=== PATIENT | female | born 1980 | race Caucasian/White ===

== ENCOUNTER 2016-10-03 20:56 | Emergency (ER) | payer MEDICARE, OTHER ==
[2016-10-03] MEDS ORDERED: NALBUPHINE HCL 20 MG/ML AMPUL IM ONE (22:46)
[2016-10-03] MEDS ORDERED: PROMETHAZINE HCL 50 MG/ML AMPUL IM ONE (22:47)
--- NOTE | 2016-10-03 22:51 | ERNOTE ---
Headache ER HPI - General Presenting Symptoms: headache Time Seen by Provider: 10/03/16 22:45 Source: patient Exam Limitations: no limitations - Immun/Allergies/Home Medications Immunizations: IMMUNIZATION HX Immunizations Up to Date No History of Influenza Vaccine No Hx Pneumococcal Vaccination No Allergies/Adverse Reactions: Allergies erythromycin base [Erythromycin Base] Allergy (Mild, Verified 03/02/16 14:55) increased eye drainage and swelling oxycodone HCl [From Percocet] Allergy (Mild, Verified 03/02/16 14:55) rash ofloxacin [From Ocuflox] Allergy (Verified 03/02/16 14:55) increased eye drainage and swelling cloth tape Allergy (Intermediate, Uncoded 03/02/16 14:55) surgical mike Allergy (Intermediate, Uncoded 03/02/16 14:55) Other Home Medications: HOME MEDICATIONS Albuterol Sulfate [Proair Hfa] 2 puff IH Q4H 06/03/13 [Last Taken 05/03/14] Levothyroxine Sodium [Synthroid] 112 mcg PO DAILY 06/03/13 [Last Taken 05/03/14] Montelukast Sodium [Singulair] 10 mg PO DAILY 07/10/15 [Last Taken Unknown] Albuterol Sulfate/Ipratropium [Duoneb 2.5-0.5MG/3ML Soln] 3 ml IH Q6H PRN #40 nebu 08/29/15 [Last Taken Unknown] Lamotrigine [Lamictal] 200 mg PO DAILY 02/03/16 [Last Taken Unknown] Fluticasone/Vilanterol [Breo Ellipta 100-25 Mcg INH] 1 inh INH DAILY 10/03/16 [ Last Taken Unknown] Quetiapine Fumarate [Seroquel] 200 mg PO DAILY 10/03/16 [Last Taken Unknown] Tiotropium [place] [Spiriva Respimat] 4 gm IH DAILY 10/03/16 [Last Taken Unknown ] - History of Present Illness Narrative: Here for chronic headaches. This one started two days ago. Pt no longer sees neurologist or PCP due to insurance issues. has not taken any meds except Excedrin as she states " they dont work" Review of Systems - Review of Systems Constitutional: Present: no symptoms reported EYE: Present: other - photophobia ENT: Present: no symptoms reported Respiratory: Present: no symptoms reported Cardiology: Present: no symptoms reported Gastrointestinal/Abdominal: Present: no symptoms reported Genitourinary: Present: no symptoms reported Musculoskeletal: Present: no symptoms reported Skin: Present: no symptoms reported Neurological: Present: See HPI Psych: Present: no symptoms reported - Patient's Past Medical History Patient History - Medical: Anxiety, Bipolar, Depression, Hypothyroidism, Obesity , Other Patient History - Cardiac/Respiratory: Asthma Patient History - Cancer: No Hx of Cancer Patient History - Surgical Procedures: Appendectomy, , Tubal Ligation, T & A, Other Patient History - Other: None LMP (Calendar): 10/01/15 - Family History Father Family History - Cardiac/Respiratory: Hypertension Mother Family History - Medical: Diabetes Type 2 Family History - Cardiac/Respiratory: Hypertension, Hyperlipidemia - Social History Living Situations: home Abuse History: No History of abuse Psych History: Hx of Anxiety, Hx of Depression, Hx of Bipolar Disorder, Hx of Schizophrenia, Hx of Eating Disorder, Hx of Suicide Attempt, Hx of Psychiatric Tx Does anyone smoke in the home?: No Smoking Status: Former smoker Have you smoked in the past 12 months: No Do you dip or chew tobacco: No Alcohol Use: none Drug Use: none - Immunizations Immunizations Up to Date: No Hx Pneumococcal Vaccination: No History of Influenza Vaccine: No Physical Exam - Physical Exam General Appearance: Present: wd/wn, alert, no apparent distress Ears, Nose, Throat: Present: normal ENT inspection Neck: Present: normal inspection, nontender, supple Respiratory: Present: no respiratory distress, normal breath sounds, chest nontender, lungs clear Cardiovascular/Chest: Present: regular rate, rhythm, no murmur, normal peripheral pulses Gastrointestinal/Abdominal: Present: normal bowel sounds - obese, nontender, nondistended, soft, no organomegaly Neurological Exam: Present: alert, oriented ED Progress - Vital Signs Vital Signs: Vital Signs 10/03/16 21:20 Temperature 37.3 C Pulse Rate 84 Respiratory 22 H Rate Blood Pressure 161/73 O2 Sat by Pulse 99 Oximetry - Progress/Reassessment Chief Complaint: Headache Departure Clinical Impression: Headache Qualifiers: Headache type: unspecified Headache chronicity pattern: unspecified pattern - Departure Disposition: Home self-care Condition: Fair Instructions: Tension Headache, [id number] Referrals: Olamide Vasquez FNP [Primary Care Provider] -
[2016-10-03] MEDS ORDERED: PROMETHAZINE HCL 25 MG/ML AMPUL ONE (22:55)
[2016-10-03] MEDS ORDERED: NALBUPHINE HCL 20 MG/ML AMPUL ONE (22:55)
--- OUTSIDE RECORDS SUMMARY | 2016-10-03 22:55 | XMS REPORT | Continuity of Care Document ---
:1980 Author Organization [facility] ([facility]) Address [address] [place] [address] Phone [phone] Care Team Providers Name Role Phone Olamide Vasquez Primary Care Provider [phone] Source Comments This disclosure is being made pursuant to the Care Everywhere program, applicable federal and state laws, and may not contain all informaitonavailable regarding this patient.[facility] ([facility]) Active Allergies and Adverse Reactions Allergen Noted Date Severity Reactions Comments Adhesive Urticaria (Hives) Benzalkonium Chloride OTHER worsened infection Erythromycin OTHER Ophthalmic Oint.-infection worsened. Ofloxacin OTHER worsened infection. Also called Ocuflex. Other Agent 07/16/2016 Blisters,OTHER Infection at the staple sites. SURGICAL KEISHA Oxycodone Pruritus Current Medications Prescription Sig. Disp. Refills Start Date End Date Status levothyroxine 112 mcg 112 mcg daily. 09/06/2013 Active tablet VENTOLIN HFA 90 as needed. 2 07/13/2016 Active mcg/Actuation inhaler albuterol 2.5 mg/3 mL daily. 2 05/26/2016 Active inhalation solution lamoTRIgine 200 mg Take 1 tablet by 3 05/26/2016 Active tablet mouth daily. montelukast 10 mg tablet Take 1 tablet by 11 05/26/2016 Active mouth daily. oxyCODONE-acetaminophen as needed. 0 06/02/2016 Active 5-325 mg per tablet QUEtiapine 200 mg tablet Take 1 tablet by 3 05/26/2016 Active mouth at bedtime. SPIRIVA RESPIMAT 1.25 2 times daily. 11 05/26/2016 Active mcg/actuation inhaler budesonide-formoterol Use 2 Puffs by Active (SYMBICORT) 160-4.5 inhalation daily. mcg/Actuation inhaler Active Problems Problem Noted Date Morbid obesity due to excess calories 07/16/2016 Bipolar 1 disorder 07/16/2016 Hx of migraines 07/16/2016 PTSD (post-traumatic stress disorder) 07/16/2016 Hypothyroidism 07/16/2016 Cluster B personality disorder in adult 07/16/2016 Adjustment disorder with mixed anxiety and depressed mood 07/16/2016 Asthma 07/16/2016 Irritable bowel syndrome 07/16/2016 H/O colectomy 07/16/2016 Special screening for malignant neoplasms, vagina 10/19/2006 Most Recent Encounters Date Type Specialty Providers Description 07/16/2016 Hospital Encounter Food and Nutrition Patsy Hough, Dx: Morbid obesity MD due to excess Fara Fan RD LD calories (Primary Dx) 07/16/2016 Office Visit Srg Patsy Pickard, Dx: Special MD screening for malignant neoplasms, vagina (Primary Dx) Social History Tobacco Use Types Packs/Day Years Used Date Former Smoker Cigarettes 0.5 5 Quit: 12/03/2008 Smokeless Tobacco: Never Used Alcohol Use Drinks/Week oz/Week Comments Yes 1 Glasses of wine 1 Standard drinks or equivalent Last Filed Vital Signs Vital Sign Reading Time Taken Blood Pressure 140/64 07/16/2016 8:08 AM SENIOR ENGINEERING TECHNICIAN Pulse 83 07/16/2016 8:08 AM SENIOR ENGINEERING TECHNICIAN Temperature 36.3 C (97.3 F) 07/16/2016 8:08 AM SENIOR ENGINEERING TECHNICIAN Respiratory Rate 16 10/19/2006 10:03 AM CDT Height 1.65 m (5' 4.96") 07/16/2016 8:13 AM SENIOR ENGINEERING TECHNICIAN Weight 190.6 kg (420 lb 3.2 oz) 07/16/2016 8:13 AM SENIOR ENGINEERING TECHNICIAN Body Mass Index 70.01 07/16/2016 8:13 AM SENIOR ENGINEERING TECHNICIAN Oxygen Saturation - - Plan of Care Health Maintenance Due Date Last Done Comments Hepatitis B Vaccine (1 of 3 - Primary Series) 1982 Tdap Vaccine 1993 MMR Vaccine 2000 Td Vaccine 2000 Varicella Vaccine (1 of 2 - Adult - No Evidence of 2000 Immunity) Pneumococcal Vaccine (1 of 1 - PPSV23) 2001 Lipid Disorder Screening 06/23/2010 06/23/2005 Cervical Cancer Screening 2012 10/19/2006 Influenza Vaccine: Seasonal (#1) 02/17/2016 Results from Last 3 Months Not on file
[2016-10-03 23:08] VITALS: BP 148/88
== END 2016-10-03 23:12 | disposition home or self-care (01) ==
LOC: ER 20:56
DX: R51 Headache (principal); Z87.891 Personal history of nicotine dependence; F31.9 Bipolar disorder, unspecified; J45.909 Unspecified asthma, uncomplicated; E03.9 Hypothyroidism, unspecified

== ENCOUNTER 2016-11-07 22:19 | Emergency (ER) | payer MEDICARE, OTHER ==
[2016-11-07] MEDS ORDERED: diphenhydrAMINE HCL 50 MG/ML VIAL IM ONE (23:47)
[2016-11-07] MEDS ORDERED: METOCLOPRAMIDE HCL 5 MG/ML VIAL IM ONE (23:47)
--- NOTE | 2016-11-07 23:51 | ERNOTE ---
Headache ER HPI - General Presenting Symptoms: headache Time Seen by Provider: 11/07/16 23:42 Source: patient Exam Limitations: no limitations - Immun/Allergies/Home Medications Immunizations: IMMUNIZATION HX Immunizations Up to Date Yes History of Influenza Vaccine Yes Hx Pneumococcal Vaccination No Allergies/Adverse Reactions: Allergies erythromycin base [Erythromycin Base] Allergy (Mild, Verified 11/07/16 22:31) increased eye drainage and swelling oxycodone HCl [From Percocet] Allergy (Mild, Verified 11/07/16 22:31) rash ofloxacin [From Ocuflox] Allergy (Verified 11/07/16 22:31) increased eye drainage and swelling cloth tape Allergy (Intermediate, Uncoded 11/07/16 22:31) surgical mike Allergy (Intermediate, Uncoded 11/07/16 22:31) Other Home Medications: HOME MEDICATIONS Albuterol Sulfate [Proair Hfa] 2 puff IH Q4H 06/03/13 [Last Taken 05/03/14] Levothyroxine Sodium [Synthroid] 112 mcg PO DAILY 06/03/13 [Last Taken 05/03/14] Montelukast Sodium [Singulair] 10 mg PO DAILY 07/10/15 [Last Taken Unknown] Albuterol Sulfate/Ipratropium [Duoneb 2.5-0.5MG/3ML Soln] 3 ml IH Q6H PRN #40 nebu 08/29/15 [Last Taken Unknown] lamoTRIgine [Lamictal] 200 mg PO DAILY 02/03/16 [Last Taken Unknown] Fluticasone/Vilanterol [Breo Ellipta 100-25 Mcg INH] 1 inh INH DAILY 10/03/16 [ Last Taken Unknown] QUEtiapine FUMARATE [Seroquel] 200 mg PO DAILY 10/03/16 [Last Taken Unknown] Tiotropium [place] [Spiriva Respimat] 4 gm IH DAILY 10/03/16 [Last Taken Unknown ] - History of Present Illness Narrative: PAtient has a history of recurrent migraines and is being evaluated for botox therapy as that has helped her in the past. This current headache started last night, on top of her head, severe nausea, no vomiting. excedrin migraine has not helped. She has decreased sensation on the left side of her face Date (Duration): 11/06/16 Time (Timing): 22:00 Timing of Headache: gradual Quality: Present: pressure Severity-Currently: Present: severe Headache frequency: Present: frequent headaches, similar to previous headache Modifying Factors - (Worsens): Reports: movement, exposure to light Associated Symptoms: Reports: nausea, numbness/tingling. Denies: fever/chills, vomiting, neck pain/stiffness Exacerbated by:: Reports: light, noise, movement Prior Treament: Reports: similar symptoms before Review of Systems - Review of Systems Constitutional: Absent: recent illness, fever EYE: Absent: double vision ENT: Absent: nose congestion, sore throat Respiratory: Absent: shortness of breath, cough Cardiology: Absent: chest pain Gastrointestinal/Abdominal: Present: nausea. Absent: vomiting Genitourinary: Present: no symptoms reported Musculoskeletal: Absent: neck pain Neurological: Present: headache. Absent: weakness, numbness - Patient's Past Medical History Patient History - Medical: Anxiety, Bipolar, Depression, Hypothyroidism, Migraines, Obesity, Other Patient History - Cardiac/Respiratory: Asthma Patient History - Cancer: No Hx of Cancer Patient History - Surgical Procedures: Appendectomy, , Tubal Ligation, T & A, Other Patient History - Other: None LMP (Calendar): 10/01/15 - Family History Father Family History - Cardiac/Respiratory: Hypertension Mother Family History - Medical: Diabetes Type 2 Family History - Cardiac/Respiratory: Hypertension, Hyperlipidemia - Social History Living Situations: home Abuse History: No History of abuse Psych History: Hx of Anxiety, Hx of Depression, Hx of Bipolar Disorder, Hx of Schizophrenia, Hx of Eating Disorder, Hx of Suicide Attempt, Hx of Psychiatric Tx Does anyone smoke in the home?: No Smoking Status: Never smoker Alcohol Use: none Drug Use: none - Immunizations Immunizations Up to Date: Yes Hx Pneumococcal Vaccination: No History of Influenza Vaccine: Yes Physical Exam - Physical Exam General Appearance: Present: wd/wn, alert, mild distress, obese Eye Exam: Normal inspection: bilateral, PERRL: bilateral Ears, Nose, Throat: Present: normal pharynx Neck: Present: normal inspection, nontender, supple, full range of motion Respiratory: Present: no respiratory distress, normal breath sounds, lungs clear Cardiovascular/Chest: Present: regular rate, rhythm, no murmur Neurological Exam: Present: alert, oriented, normal mood/affect, no motor/ sensory deficits Skin Exam: Present: normal color, warm/dry ED Progress - Vital Signs Patient's Vital Signs:: I have reviewed the patient's vital signs. Vital Signs: Vital Signs 11/07/16 22:24 Temperature 37 C Pulse Rate 74 Respiratory 18 Rate Blood Pressure 155/67 O2 Sat by Pulse 98 Oximetry - Progress/Reassessment Chief Complaint: Headache Progress Note-Subjective: 11/08/16 00:38 headache better Departure Clinical Impression: Migraine headache Qualifiers: Migraine type: unspecified Status migrainosus presence: without status migrainosus Intractability: not intractable Qualified Code(s): G43.909 - Migraine, unspecified, not intractable, without status migrainosus - Departure Disposition: Home self-care Condition: Good Instructions: Recurrent Migraine Headache, [id number] Referrals: Olamide Vasquez FNP [Primary Care Provider] -
[2016-11-07] MEDS ORDERED: METOCLOPRAMIDE HCL 5 MG/ML VIAL ONE (23:53)
[2016-11-07] MEDS ORDERED: diphenhydrAMINE HCL 50 MG/ML VIAL ONE (23:53)
--- OUTSIDE RECORDS SUMMARY | 2016-11-07 23:58 | XMS REPORT | Continuity of Care Document ---
:1980 Author Organization [facility] ([facility]) Address [address] [place] [address] Phone [phone] Care Team Providers Name Role Phone Olamide Vasquez Primary Care Provider [phone] Source Comments This disclosure is being made pursuant to the Care Everywhere program, applicable federal and state laws, and may not contain all informaitonavailable regarding this patient.[facility] ([facility]) Active Allergies and Adverse Reactions Allergen Noted [...] Recent Encounters Date Type Specialty Providers Description 10/12/2016 Telephone Care Coordination Joey Greer, Chief Comp: Appointment RN Request Social History Tobacco Use Types Packs/Day Years Used Date Former Smoker Cigarettes 0.5 5 Quit: 12/03/2008 Smokeless Tobacco: Never Used Alcohol Use Drinks/Week oz/Week Comments Yes 1 Glasses of wine 1 Standard drinks or equivalent Last Filed Vital Signs Vital Sign Reading Time Taken Blood Pressure 140/64 07/16/2016 8:08 AM SCHOOL CURRICULUM DEVELOPER Pulse 83 07/16/2016 8:08 AM SCHOOL CURRICULUM DEVELOPER Temperature 36.3 C (97.3 F) 07/16/2016 8:08 AM SCHOOL CURRICULUM DEVELOPER Respiratory Rate 16 10/19/2006 10:03 AM CDT Height 1.65 m (5' 4.96") 07/16/2016 8:13 AM SCHOOL CURRICULUM DEVELOPER Weight 190.6 kg (420 lb 3.2 oz) 07/16/2016 8:13 AM SCHOOL CURRICULUM DEVELOPER Body Mass Index 70.01 07/16/2016 8:13 AM SCHOOL CURRICULUM DEVELOPER Oxygen Saturation - - Plan of Care [...] Cancer Screening 2012 10/19/2006 Influenza Vaccine: Seasonal (Season Ended) 2017 Results from Last 3 Months Not on file
[2016-11-08 00:44] VITALS: BP 146/78
== END 2016-11-08 00:42 | disposition home or self-care (01) ==
LOC: ER 22:19
DX: G43.909 Migraine, unspecified, not intractable, without status migrainosus (principal)

== ENCOUNTER 2017-01-08 19:13 | Emergency (ER) | payer MEDICARE, OTHER ==
[2017-01-08 19:45] LABS: Hematocrit 37.8 % (37.0-47.0); Hemoglobin 12.1 gm/dL (12.5-16.0); Mean Cell Volume 79.2 fl (78-100); Mean Corpuscular Hemoglobin 25.4 pg (27-31); Neutrophil # 5.9 K/mm3 (1.3-6.0); Neutrophil % 67.3 % (42-75.0); Platelet Count 239 K/mm3 (150-450); Red Blood Count 4.77 M/mm3 (4.2-5.4); Red Cell Distribution Width 16.6 % (11.5-14.0); White Blood Count 8.8 K/mm3 (4.0-10.5)
[2017-01-08 19:59] LABS: Cocaine Ur Negative (NEGATIVE); Urine Barbiturate Negative (NEGATIVE); Urine Benzodiazepines Negative (NEGATIVE); Urine Opiates Negative (NEGATIVE); Urine PCP Negative (NEGATIVE); Urine THC Negative (NEGATIVE)
[2017-01-08 20:06] LABS: ALT 30 U/L (19-67); AST 17 U/L (0-48); Albumin * 3.2 gm/dl (3.4-5.0); Alkaline Phosphatase * 142 U/L (50-170); Anion Gap 9.4 mmol/L (6.8-13.8); BUN/Creatinine Ratio 8.9 (9.0-21.6); Bilirubin, Total 0.2 mg/dL (0.0-1.1); Blood Urea Nitrogen 9 mg/dL (3-23); Ca. Corrected For Albumin 8.9 mg/dL (8.4-10.2); Calcium * 8.6 mg/dL (7.9-10.9); Carbon Dioxide 29.5 mmol/L (24-32.6); Chloride 106 mmol/L (97-106); Glucose * 119 mg/dL (70-110); Potassium 3.9 mmol/L (3.4-4.6); Salicylate Less than 2.8 mg/dL (2.8-20.0); Sodium 141 mmol/L (132-142); TSH * 1.397 uIU/mL (0.358-3.74); Total Protein 7.1 gm/dL (6.2-8.2)
[2017-01-08 20:09] LABS: Urine Appearance Slightly Cloudy; Urine Bilirubin Negative (NEGATIVE); Urine Blood 150 /ul (NEGATIVE); Urine Color Yellow; Urine Ketone Negative (NEGATIVE); Urine Nitrite Negative (NEGATIVE); Urine Protein Negative (NEGATIVE); Urine Urobilinogen Normal (NORMAL)
[2017-01-08 20:10] LABS: Urine Bacteria 4+
[2017-01-08] MEDS ORDERED: LORazepam 1 MG TABLET PO ONE (20:38)
[2017-01-08] MEDS ORDERED: LORazepam 1 MG TABLET ONE (20:43)
--- NOTE | 2017-01-08 20:52 | ERNOTE ---
Psychological HPI - Date Date of Service: 01/08/17 - General Chief Complaint: Psychiatric Problem Source: Reports: patient Exam Limitations: Reports: no limitations - Immun/Allergies/Home Medications Allergies/Adverse Reactions: Allergies erythromycin base [Erythromycin Base] Allergy (Mild, Verified 11/07/16 22:31) increased eye drainage and swelling oxycodone HCl [From Percocet] Allergy (Mild, Verified 11/07/16 22:31) rash ofloxacin [From Ocuflox] Allergy (Verified 11/07/16 22:31) increased eye drainage and swelling cloth tape Allergy (Intermediate, Uncoded 11/07/16 22:31) surgical mike Allergy (Intermediate, Uncoded 11/07/16 22:31) Other Home Medications: HOME MEDICATIONS Albuterol Sulfate [Proair Hfa] 2 puff IH Q4H 06/03/13 [Last Taken 05/03/14] Levothyroxine Sodium [Synthroid] 112 mcg PO DAILY 06/03/13 [Last Taken 05/03/14] Montelukast Sodium [Singulair] 10 mg PO DAILY 07/10/15 [Last Taken Unknown] Albuterol Sulfate/Ipratropium [Duoneb 2.5-0.5MG/3ML Soln] 3 ml IH Q6H PRN #40 nebu 08/29/15 [Last Taken Unknown] lamoTRIgine [Lamictal] 200 mg PO DAILY 02/03/16 [Last Taken Unknown] Fluticasone/Vilanterol [Breo Ellipta 100-25 Mcg INH] 1 inh INH DAILY 10/03/16 [ Last Taken Unknown] QUEtiapine FUMARATE [Seroquel] 200 mg PO DAILY 10/03/16 [Last Taken Unknown] Tiotropium [place] [Spiriva Respimat] 4 gm IH DAILY 10/03/16 [Last Taken Unknown ] Nitrofurantoin/Nitrofuran Mac [Macrobid] 100 mg PO Q12H #14 cap 01/11/17 [Last Taken Unknown] - History of Present Illness Narrative: 36 year old that is facing stressful situations with her relatives. She has threatened to move out from her mother's home since they are not getting along and she is craving greater independence. The mother in turn has now made her feel guilty. She believes that the stress is growing, and feels like there is little control of her life. Has been having dreams of cutting her self; hx of self mutilation. Joelle will not be able to get to see her counselor until Wednesday. Denies any suicidal ideations currently, but has had six suicide attempts by overdose in the past. She is open to the idea of voluntarily be hospitalized to have her medication regimen altered and have counseling done. Past; bipolar disorder; depression; personality disorder, anxiety. Time Seen by Provider: 01/08/17 20:09 Arrived by: Reports: called by friend/other Onset/duration: Reports: constant Intent: Reports: prior thoughts of suicide, other Situational Problems: Reports: parents Associated Symptoms: Reports: depressed, angry, frustrated Review of Systems - Review of Systems Constitutional: Present: no symptoms reported EYE: Present: no symptoms reported ENT: Present: no symptoms reported Respiratory: Present: no symptoms reported Cardiology: Present: no symptoms reported Gastrointestinal/Abdominal: Present: no symptoms reported Genitourinary: Present: no symptoms reported - no dysuria or frequency Musculoskeletal: Present: no symptoms reported Skin: Present: no symptoms reported Neurological: Present: no symptoms reported Endocrine: Present: no symptoms reported Hematologic/Lymphatic: Present: no symptoms reported - Patient's Past Medical History Patient History - Medical: Anxiety, Bipolar, Depression, Hypothyroidism, Migraines, Obesity, Other Patient History - Cardiac/Respiratory: Asthma Patient History - Cancer: No Hx of Cancer Patient History - Surgical Procedures: Appendectomy, , Tubal Ligation, T & A, Other Patient History - Other: None LMP (females 10-50): April 2016 [facility] LMP (Calendar): 10/01/15 - Family History Father Family History - Cardiac/Respiratory: Hypertension Mother Family History - Medical: Diabetes Type 2 Family History - Cardiac/Respiratory: Hypertension, Hyperlipidemia - Social History Living Situations: home Abuse History: No History of abuse Psych History: Hx of Anxiety, Hx of Depression, Hx of Bipolar Disorder, Hx of Schizophrenia, Hx of Eating Disorder, Hx of Suicide Attempt, Hx of Psychiatric Tx Does anyone smoke in the home?: No Smoking Status: Current some day smoker Have you smoked in the past 12 months: Yes Do you dip or chew tobacco: No Patient requests Smoking Cessation Consult: No Initiate information on Smoking Cessation: No Alcohol Use: none Drug Use: none - Immunizations Immunizations Up to Date: No Hx Pneumococcal Vaccination: No History of Influenza Vaccine: No Physical Exam - Physical Exam Narrative: super morbidly obese General Appearance: Present: no apparent distress Eye Exam: Normal inspection: bilateral Ears, Nose, Throat: Present: normal ENT inspection Neck: Present: normal inspection, supple Respiratory: Present: no respiratory distress Cardiovascular/Chest: Present: regular rate, rhythm Gastrointestinal/Abdominal: Present: nondistended, soft Back Exam: Present: normal inspection, normal range of motion Extremity Exam: Present: normal inspection Neurological Exam: Present: alert, oriented Skin Exam: Present: normal color ED Progress - Results and Orders Patient's Lab Results:: I have reviewed the patient's lab results. - Vital Signs Vital Signs: Vital Signs 01/08/17 19:22 Temperature 36.9 C Pulse Rate 84 Respiratory 18 Rate Blood Pressure 163/90 O2 Sat by Pulse 100 Oximetry - Progress/Reassessment Chief Complaint: Psychiatric Problem Progress:: Improved Progress Note-Subjective: 01/08/17 21:[address] Robledo who will accept the transfer of the patient. The patient has been cooperative. Departure Clinical Impression: Depression, Anxiety - Departure Disposition: Transferred to other hospital Condition: Fair Additional Instructions: Transferred to [facility]. Prescriptions: Nitrofurantoin/Nitrofuran Mac [Macrobid] 100 mg PO Q12H #14 cap
[2017-01-08 23:34] VITALS: BP 122/51
== END 2017-01-08 23:44 | disposition short-term general hospital (02) ==
LOC: ER 19:13
DX: F34.1 Dysthymic disorder (principal); F41.8 Other specified anxiety disorders; Z72.0 Tobacco use
CPT/HCPCS: 36415; 80053; 80307; 81001; 84443; 84703; 85025; 87086; 93005; 99285; G0480; G0481

== ENCOUNTER 2017-02-09 19:27 | Emergency (ER) | payer MEDICARE, OTHER ==
[2017-02-09] MEDS ORDERED: KETOROLAC TROMETHAMINE 30 MG/ML VIAL IV ONE (20:12)
[2017-02-09] MEDS ORDERED: METHYLPREDNISOLONE SOD SUCC/PF 125 MG/2 ML VIAL IV ONE (20:12)
[2017-02-09] MEDS ORDERED: NORMAL SALINE 1,000 ML IV ONE (20:12)
[2017-02-09] MEDS ORDERED: diphenhydrAMINE HCL 50 MG/ML VIAL IV ONE (20:13)
--- NOTE | 2017-02-09 20:15 | ERNOTE ---
Headache ER HPI - General Presenting Symptoms: "migraine" Time Seen by Provider: 02/09/17 20:01 Source: patient Exam Limitations: no limitations - Immun/Allergies/Home Medications Immunizations: IMMUNIZATION HX Immunizations Up to Date Yes History of Influenza Vaccine No Hx Pneumococcal Vaccination No Allergies/Adverse Reactions: Allergies erythromycin base [Erythromycin Base] Allergy (Mild, Verified 02/09/17 19:38) increased eye drainage and swelling ofloxacin [From Ocuflox] Allergy (Verified 02/09/17 19:38) increased eye drainage and swelling cloth tape Allergy (Intermediate, Uncoded 02/09/17 19:38) surgical mike Allergy (Intermediate, Uncoded 02/09/17 19:38) Other Home Medications: HOME MEDICATIONS Levothyroxine Sodium [Synthroid] 112 mcg PO DAILY 06/03/13 [Last Taken 05/03/14] Montelukast Sodium [Singulair] 10 mg PO DAILY 07/10/15 [Last Taken Unknown] lamoTRIgine [Lamictal] 200 mg PO DAILY 02/03/16 [Last Taken Unknown] QUEtiapine FUMARATE [Seroquel] 300 mg PO DAILY 10/03/16 [Last Taken Unknown] Albuterol Sulfate [Ventolin HFA] 1 puff IH 02/09/17 [Last Taken Unknown] Fluticasone/Vilanterol [Breo Ellipta 100-25 Mcg INH] 1 inh INH DAILY 02/09/17 [ Last Taken Unknown] Tiotropium [place] [Spiriva Respimat] 4 gm IH DAILY 02/09/17 [Last Taken Unknown ] Topiramate [Topamax] 50 mg PO DAILY 02/09/17 [Last Taken Unknown] tiZANidine HCL [Tizanidine HCl] 2 mg PO DAILY 02/09/17 [Last Taken Unknown] - Pain Pain Score: 7 - History of Present Illness Narrative: Pt states she has chronic migraines treated with botox injections. The last injections were 6 weeks ago and she states they were painful from the onset. Headache today had onset yesterday she has taken excedrin yesterday and earlier today without much benefit. Timing of Headache: cannot pinpoint onset, constant Quality: Present: throbbing Severity Maximum: Present: severe Severity-Currently: Present: moderate Headache frequency: Present: frequent headaches, chronic headaches Modifying Factors - (Worsens): Reports: exposure to light Associated Symptoms: Reports: denies symptoms Exacerbated by:: Reports: light, noise Review of Systems - Review of Systems Constitutional: Absent: recent illness EYE: Absent: vision changes ENT: Absent: ear pain, nose congestion Respiratory: Absent: shortness of breath Cardiology: Absent: chest pain Genitourinary: Present: no symptoms reported Musculoskeletal: Absent: back pain, neck pain Skin: Present: no symptoms reported Neurological: Present: See HPI Endocrine: Present: no symptoms reported Hematologic/Lymphatic: Present: no symptoms reported - Patient's Past Medical History Patient History - Medical: Anxiety, Bipolar, Depression, Hypothyroidism, Migraines, Obesity, Other Patient History - Cardiac/Respiratory: Asthma Patient History - Cancer: No Hx of Cancer Patient History - Surgical Procedures: Appendectomy, , Tubal Ligation, T & A, Other Patient History - Other: None LMP (females 10-50): April LMP (Calendar): 10/01/15 - Family History Father Family History - Cardiac/Respiratory: Hypertension Mother Family History - Medical: Diabetes Type 2 Family History - Cardiac/Respiratory: Hypertension, Hyperlipidemia - Social History Living Situations: parents Abuse History: No History of abuse Psych History: Hx of Anxiety, Hx of Depression, Hx of Bipolar Disorder, Hx of Schizophrenia, Hx of Eating Disorder, Hx of Suicide Attempt, Hx of Psychiatric Tx Does anyone smoke in the home?: No Smoking Status: Current every day smoker Have you smoked in the past 12 months: Yes Alcohol Use: occasionally Drug Use: none - Immunizations Immunizations Up to Date: Yes Hx Pneumococcal Vaccination: No History of Influenza Vaccine: No Physical Exam - Physical Exam General Appearance: Present: wd/wn, alert, no apparent distress Eye Exam: Normal inspection: bilateral, PERRL: bilateral, EOMI: bilateral Ears, Nose, Throat: Present: normal ENT inspection, normal pharynx Neck: Present: normal inspection, nontender Respiratory: Present: no respiratory distress, lungs clear Cardiovascular/Chest: Present: regular rate, rhythm, no murmur Extremity Exam: Present: normal inspection, normal range of motion, no edema Neurological Exam: Present: alert, oriented, other - flat affect Skin Exam: Present: normal color, warm/dry Lymphatic Exam: Present: no adenopathy ED Progress - Vital Signs Vital Signs: Vital Signs 02/09/17 19:32 Temperature 36.7 C Pulse Rate 84 Respiratory 16 Rate Blood Pressure 143/79 O2 Sat by Pulse 98 Oximetry - Progress/Reassessment Chief Complaint: Headache Progress:: Improved Progress Note-Subjective: 02/09/17 21:29 pain 08/28 now Departure Clinical Impression: Migraine headache Qualifiers: Migraine type: chronic without aura Status migrainosus presence: without status migrainosus Intractability: not intractable Qualified Code(s): G43.709 - Chronic migraine without aura, not intractable, without status migrainosus - Departure Disposition: Home Follow Up Needed Condition: Good Instructions: Migraine Headache, [id number] Additional Instructions: See your regular doctor for further preventive treatment for your headaches
[2017-02-09] MEDS ORDERED: diphenhydrAMINE HCL 50 MG/ML VIAL ONE (20:24)
[2017-02-09] MEDS ORDERED: KETOROLAC TROMETHAMINE 30 MG/ML VIAL ONE (20:24)
[2017-02-09] MEDS ORDERED: METHYLPREDNISOLONE SOD SUCC/PF 125 MG/2 ML VIAL ONE (20:24)
[2017-02-09 21:23] VITALS: BP 121/73
== END 2017-02-09 21:35 | disposition home or self-care (01) ==
LOC: ER 19:27
DX: G43.709 Chronic migraine without aura, not intractable, without status migrainosus (principal); J45.909 Unspecified asthma, uncomplicated; F17.200 Nicotine dependence, unspecified, uncomplicated

== ENCOUNTER 2017-03-05 22:05 | Emergency (ER) | payer MEDICARE, OTHER ==
[2017-03-05] MEDS ORDERED: NORMAL SALINE 1,000 ML IV ONE (22:27)
[2017-03-05] MEDS ORDERED: diphenhydrAMINE HCL 50 MG/ML VIAL IV ONE (22:27)
[2017-03-05] MEDS ORDERED: METHYLPREDNISOLONE SOD SUCC/PF 125 MG/2 ML VIAL IV ONE (22:27)
[2017-03-05] MEDS ORDERED: PROCHLORPERAZINE EDISYLATE 5 MG/ML VIAL IV ONE (22:27)
[2017-03-05] MEDS ORDERED: KETOROLAC TROMETHAMINE 30 MG/ML VIAL IV ONE (22:27)
--- NOTE | 2017-03-05 22:32 | ERNOTE ---
Headache ER HPI - Narrative Date of Service: 03/05/17 - General Presenting Symptoms: headache Time Seen by Provider: 03/05/17 22:11 Source: patient - Immun/Allergies/Home Medications Immunizations: IMMUNIZATION HX Immunizations Up to Date Yes History of Influenza Vaccine No Hx Pneumococcal Vaccination No Allergies/Adverse Reactions: Allergies erythromycin base [Erythromycin Base] Allergy (Mild, Verified 03/05/17 22:15) increased eye drainage and swelling ofloxacin [From Ocuflox] Allergy (Verified 03/05/17 22:15) increased eye drainage and swelling cloth tape Allergy (Intermediate, Uncoded 03/05/17 22:15) surgical mike Allergy (Intermediate, Uncoded 03/05/17 22:15) Other Home Medications: HOME MEDICATIONS Levothyroxine Sodium [Synthroid] 112 mcg PO DAILY 06/03/13 [Last Taken 05/03/14] Montelukast Sodium [Singulair] 10 mg PO DAILY 07/10/15 [Last Taken Unknown] lamoTRIgine [Lamictal] 200 mg PO DAILY 02/03/16 [Last Taken Unknown] QUEtiapine FUMARATE [Seroquel] 400 mg PO DAILY 10/03/16 [Last Taken Unknown] Albuterol Sulfate [Ventolin HFA] 1 puff IH 02/09/17 [Last Taken Unknown] Fluticasone/Vilanterol [Breo Ellipta 100-25 Mcg INH] 1 inh INH DAILY 02/09/17 [ Last Taken Unknown] Tiotropium [place] [Spiriva Respimat] 4 gm IH DAILY 02/09/17 [Last Taken Unknown ] Topiramate [Topamax] 50 mg PO BID 02/09/17 [Last Taken Unknown] tiZANidine HCL [Tizanidine HCl] 2 mg PO DAILY 02/09/17 [Last Taken Unknown] - History of Present Illness Narrative: This is a 36-year-old female with a history of chronic migraine headaches. She has headaches more dazed and not each month. The patient comes to the emergency department complaining of a "bad migraine headache". The patient says she has nausea but no vomiting she says she is sensitive to light and loud noises. The pain is primarily retro-orbital. She did have a spinal tap performed earlier today in [place]. She says that they abandoned the attempt before obtaining CSF fluid. She says that they told her to drink caffeine and lots of fluids. The patient says that this has not been helping. The patient denies . She denies any other symptoms. She has had no new numbness or tingling. No vision changes. No dizziness. These are extremely similar to all of her previous migraine headaches. She says that coughing may make the headache a bit worse. This is unusual for her. Review of Systems - Review of Systems Constitutional: Present: no symptoms reported EYE: Present: no symptoms reported ENT: Present: no symptoms reported Respiratory: Present: no symptoms reported Cardiology: Present: no symptoms reported Gastrointestinal/Abdominal: Present: nausea. Absent: vomiting, diarrhea, constipation, abdominal pain Genitourinary: Present: no symptoms reported Musculoskeletal: Present: back pain, other - patient has pain near where the spinal tap was performed Skin: Present: no symptoms reported Neurological: Present: headache. Absent: anxiety, depressed, dizziness/light- headedness, seizure, weakness, numbness, tingling, tremors, pre-existing deficit , other Endocrine: Present: no symptoms reported Hematologic/Lymphatic: Present: no symptoms reported Psych: Present: no symptoms reported All Other Systems: All systems neg except as marked - Patient's Past Medical History Patient History - Medical: Anxiety, Bipolar, Depression, Hypothyroidism, Migraines, Obesity, Other Patient History - Cardiac/Respiratory: Asthma Patient History - Cancer: No Hx of Cancer Patient History - Surgical Procedures: Appendectomy, , Tubal Ligation, T & A, Other Patient History - Other: None LMP (females 10-50): 3 weeks LMP (Calendar): 10/01/15 - Family History Father Family History - Cardiac/Respiratory: Hypertension Mother Family History - Medical: Diabetes Type 1 Family History - Cardiac/Respiratory: Hypertension, Hyperlipidemia - Social History Living Situations: home Abuse History: No History of abuse Psych History: Hx of Anxiety, Hx of Depression, Hx of Bipolar Disorder, Hx of Eating Disorder, Hx of Suicide Attempt, Hx of Psychiatric Tx Does anyone smoke in the home?: No Alcohol Use: occasionally Drug Use: none - Immunizations Immunizations Up to Date: Yes Hx Pneumococcal Vaccination: No History of Influenza Vaccine: No Physical Exam - Physical Exam General Appearance: Present: wd/wn, alert, no apparent distress, other - extremely obese very pleasant female sitting up in bed. She refuses to lay flat saying that she is afraid this will cause her to vomit Head Exam: Present: normal inspection, no evidence of injury Eye Exam: Normal inspection: bilateral - no nystagmus, PERRL: bilateral, EOMI: bilateral Ears, Nose, Throat: Present: normal ENT inspection, normal pharynx Neck: Present: normal inspection, nontender, other - no nuchal rigidity no significant adenopathy Respiratory: Present: no respiratory distress, normal breath sounds, no accessory muscle use, chest nontender, lungs clear Cardiovascular/Chest: Present: regular rate, rhythm, no murmur, normal peripheral pulses Gastrointestinal/Abdominal: Present: normal bowel sounds, nontender, nondistended, soft, no organomegaly Extremity Exam: Present: normal inspection, non-tender, normal range of motion, no edema Neurological Exam: Present: alert, oriented, normal mood/affect, no motor/ sensory deficits Skin Exam: Present: normal color, warm/dry Lymphatic Exam: Present: no adenopathy ED Progress - Vital Signs Patient's Vital Signs:: I have reviewed the patient's vital signs. Vital Signs: Vital Signs 03/05/17 22:11 Temperature 36.8 C Pulse Rate 82 Respiratory 16 Rate Blood Pressure 144/84 O2 Sat by Pulse 99 Oximetry - Progress/Reassessment Chief Complaint: Headache Progress:: Improved Progress Note-Subjective: 03/05/17 23:32 The patient now has a pain score of 2 out of 10. She is resting comfortably in bed. I'm going to give her about 45 more minutes. His lungs or headache continues to be significantly decreased we will allow her to go home. I've instructed her that she should try and get a good night sleep and that usually the next morning people feel much better. The patient is in agreement. Departure Clinical Impression: Headache - Departure Disposition: Home self-care Condition: Stable Instructions: Migraine Headache, [id number] Additional Instructions: As we discussed your symptoms certainly are concerning for a migraine headache. They do not have this typical symptoms I would associate with a post-spinal tap headache. This is not something that I think he should worry about right now. Trying get some sleep tonight and see how you feel when you get up tomorrow. Certainly if you having worse headache when his stand up, worse headache when you have a bowel movement or urinate, or develop fever or anything new and concerning you should return to the ER. I suspect her to feel much better for a day or 2. Call your family doctor and set up a follow-up appointment. Return to the ER for new or worrisome symptoms. Referrals: Elisa Turcios, BRIAR WO[facility] SORTER [Primary Care Provider] -
[2017-03-05] MEDS ORDERED: diphenhydrAMINE HCL 50 MG/ML VIAL ONE (22:41)
[2017-03-05] MEDS ORDERED: KETOROLAC TROMETHAMINE 30 MG/ML VIAL ONE (22:41)
[2017-03-05] MEDS ORDERED: METHYLPREDNISOLONE SOD SUCC/PF 125 MG/2 ML VIAL ONE (22:42)
[2017-03-05] MEDS ORDERED: PROCHLORPERAZINE EDISYLATE 5 MG/ML VIAL ONE (22:42)
[2017-03-06 00:11] VITALS: BP 130/73
== END 2017-03-06 00:09 | disposition home or self-care (01) ==
LOC: ER 22:05
DX: R51 Headache (principal)

== ENCOUNTER 2017-05-08 19:12 | Emergency (ER) | payer MEDICARE, OTHER ==
[2017-05-08 19:37] LABS: Urine Appearance Slightly Cloudy; Urine Bilirubin Negative (NEGATIVE); Urine Color Yellow
[2017-05-08 19:45] LABS: Urine Blood Negative /ul (NEGATIVE); Urine Ketone Negative (NEGATIVE); Urine Specific Gravity 1.025 SP.GR. (1.005-1.010); Urine pH 6.5 pH (5.0-7.0)
[2017-05-08 19:46] LABS: Urine Bacteria 1+; Urine Nitrite Negative (NEGATIVE); Urine Protein Negative (NEGATIVE); Urine RBC None Seen /hpf (0-5); Urine Urobilinogen Normal (NORMAL)
[2017-05-08] MEDS ORDERED: DICYCLOMINE HCL 10 MG/ML AMPUL IM ONE ×2 (20:18→20:24)
[2017-05-08] MEDS ORDERED: NORMAL SALINE 1,000 ML IV ONE (20:18)
[2017-05-08 20:29] LABS: Hematocrit 38.9 % (37.0-47.0); Hemoglobin 12.5 gm/dL (12.5-16.0); Mean Cell Volume 81.7 fl (78-100); Mean Corpuscular Hemoglobin 26.3 pg (27-31); Mean Corpuscular Hgb Conc 32.1 g/dl (32-36); Mean Platelet Volume 9.3 fl (6.0-9.5); Neutrophil # 5.3 K/mm3 (1.3-6.0); Neutrophil % 64.7 % (42-75.0); Platelet Count 241 K/mm3 (150-450); Red Blood Count 4.76 M/mm3 (4.2-5.4); Red Cell Distribution Width 16.4 % (11.5-14.0); White Blood Count 8.2 K/mm3 (4.0-10.5)
[2017-05-08 20:44] LABS: Albumin * 3.3 gm/dl (3.4-5.0); Anion Gap 10.9 mmol/L (6.8-13.8); Bilirubin, Total 0.3 mg/dL (0.0-1.1); Ca. Corrected For Albumin 8.8 mg/dL (8.4-10.2); Calcium * 8.6 mg/dL (7.9-10.9); Potassium 3.9 mmol/L (3.4-4.6); Total Protein 7.4 gm/dL (6.2-8.2)
--- NOTE | 2017-05-08 20:45 | ERNOTE ---
Abdominal HPI - Narrative Date of Service: 05/08/17 - General Chief Complaint: Abdominal Pain Time Seen by Provider: 05/08/17 20:10 Source: patient Exam Limitations: no limitations - Immun/Allergies/Home Medications Immunizatons: IMMUNIZATION HX Immunizations Up to Date Yes History of Influenza Vaccine No Hx Pneumococcal Vaccination No Allergies/Adverse Reactions: Allergies erythromycin base [Erythromycin Base] Allergy (Mild, Verified 05/08/17 19:23) increased eye drainage and swelling ofloxacin [From Ocuflox] Allergy (Verified 05/08/17 19:23) increased eye drainage and swelling cloth tape Allergy (Intermediate, Uncoded 05/08/17 19:23) surgical mike Allergy (Intermediate, Uncoded 05/08/17 19:23) Other Home Medications: HOME MEDICATIONS Levothyroxine Sodium [Synthroid] 112 mcg PO DAILY 06/03/13 [Last Taken 05/03/14] Montelukast Sodium [Singulair] 10 mg PO DAILY 07/10/15 [Last Taken Unknown] lamoTRIgine [Lamictal] 200 mg PO DAILY 02/03/16 [Last Taken Unknown] QUEtiapine FUMARATE [Seroquel] 400 mg PO DAILY 10/03/16 [Last Taken Unknown] Albuterol Sulfate [Ventolin HFA] 1 puff IH 02/09/17 [Last Taken Unknown] Fluticasone/Vilanterol [Breo Ellipta 100-25 Mcg INH] 1 inh INH DAILY 02/09/17 [ Last Taken Unknown] Topiramate [Topamax] 50 mg PO BID 02/09/17 [Last Taken Unknown] tiZANidine HCL [Tizanidine HCl] 2 mg PO DAILY 02/09/17 [Last Taken Unknown] Dicyclomine HCl [Bentyl] 10 mg PO Q6H PRN #16 capsule 05/08/17 [Last Taken Unknown] Ibuprofen [Motrin] 600 mg PO Q6H PRN #30 tab 05/08/17 [Last Taken Unknown] - History of Present Illness Narrative: This is a 37-year-old female who comes to the emergency department on a Wednesday at 8:00 in the evening. The patient is complaining of abdominal pain which is bone going on for 1 month. Patient says that she gets frequent crampy , achy abdominal pain which sometimes may become sharp. It is "all over my abdomen". Nothing seems to bring it on. Gets a little bit worse after eating. Nothing makes it better. She has had frequent "rotten egg burps". She has also had some diarrhea. Her doctor performed a stool sample and told her that everything was okay. This was done last week. The patient says she came in this evening because "I just don't want to be sick anymore". I saw the patient yesterday when she was with her child being seen in the emergency department. 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 She denies any fever or chills. She denies any urinary symptoms. She denies being . She says she's had a tubal ligation. 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 She is also had 2 C-sections and a bilateral tubal ligation. No blood in her stool that she is noted no true vomiting. No fever. No other symptoms Review of Systems - Review of Systems Constitutional: Present: no symptoms reported EYE: Present: no symptoms reported ENT: Present: no symptoms reported Respiratory: Present: no symptoms reported Cardiology: Present: no symptoms reported Gastrointestinal/Abdominal: Present: See HPI, nausea, diarrhea, abdominal pain. Absent: vomiting, constipation Genitourinary: Present: no symptoms reported Musculoskeletal: Present: no symptoms reported Skin: Present: no symptoms reported Neurological: Present: no symptoms reported Endocrine: Present: no symptoms reported Hematologic/Lymphatic: Present: no symptoms reported Psych: Present: no symptoms reported All Other Systems: All systems neg except as marked - Patient's Past Medical History Patient History - Medical: Anxiety, Bipolar, Depression, Hypothyroidism, Migraines, Obesity, Other Patient History - Cardiac/Respiratory: Asthma Patient History - Cancer: No Hx of Cancer Patient History - Surgical Procedures: Appendectomy, , Tubal Ligation, T & A, Other Patient History - Other: None LMP (females 10-50): 2 months - Family History Father Family History - Cardiac/Respiratory: Hypertension Mother Family History - Medical: Diabetes Type 1 Family History - Cardiac/Respiratory: Hypertension, Hyperlipidemia - Social History Living Situations: spouse Abuse History: No History of abuse Psych History: Hx of Anxiety, Hx of Depression, Hx of Bipolar Disorder, Hx of Eating Disorder, Hx of Suicide Attempt, Hx of Psychiatric Tx Smoking Status: Never smoker Have you smoked in the past 12 months: No Do you dip or chew tobacco: No Alcohol Use: rarely Drug Use: none - Immunizations Immunizations Up to Date: Yes Hx Pneumococcal Vaccination: No History of Influenza Vaccine: No Physical Exam - Physical Exam General Appearance: Present: wd/wn, alert, no apparent distress Head Exam: Present: normal inspection, no evidence of injury Eye Exam: Normal inspection: bilateral, PERRL: bilateral, EOMI: bilateral Ears, Nose, Throat: Present: normal ENT inspection, normal pharynx Neck: Present: normal inspection, nontender Respiratory: Present: no respiratory distress, normal breath sounds, no accessory muscle use, lungs clear Cardiovascular/Chest: Present: regular rate, rhythm, no murmur, normal peripheral pulses Gastrointestinal/Abdominal: Present: other - the abdomen is morbidly obese significantly impacting the physical exam. She has some very mild tenderness to palpation in the lower quadrants. It seems like the right is slightly greater than the left. No rebound or guarding. Rectal Exam: Present: deferred Back Exam: Present: normal inspection, normal range of motion, no CVA tenderness , no vertebral tenderness Extremity Exam: Present: normal inspection, normal range of motion, no edema Neurological Exam: Present: alert, oriented, normal mood/affect, no motor/ sensory deficits Skin Exam: Present: normal color, warm/dry Lymphatic Exam: Present: no adenopathy ED Progress - Results and Orders Patient's Lab Results:: I have reviewed the patient's lab results. - Vital Signs Patient's Vital Signs:: I have reviewed the patient's vital signs. Vital Signs: Vital Signs 05/08/17 05/08/17 19:18 20:36 Temperature 36.7 C Pulse Rate 92 77 Respiratory 18 14 Rate Blood Pressure 161/85 139/81 O2 Sat by Pulse 98 96 Oximetry - Progress/Reassessment Chief Complaint: Abdominal Pain Progress:: Improved Progress Note-Subjective: 05/08/17 21:03 Patient says that the Bentyl has helped a bit. She does not have any urinary symptoms. Labs are essentially negative. She does have 5-10 white cells but that's the same number of as appendectomy. This is likely contamination. She has no urinary symptoms. I've talked with her about seeing a GI specialist. The patient has a family doctor. She will talk with her family doctor about getting in to see a GI specialist. I will give her Bentyl to go home with. I'm also going to recommend that she use ibuprofen. Larger doses, 600 mg every 6 hours. She is aware she should return for new or worrisome symptoms Departure Clinical Impression: Abdominal pain - Departure Disposition: Home self-care Condition: Good Instructions: Nausea, Adult, Abdominal Pain, Adult, [id number] Additional Instructions: As we discussed the tests and studies do not point me in a definite correction for your symptoms. The fact that they have been going on for several weeks leads me to believe that this is not a life threatening emergency. I do not doubt that there is something wrong, but I suspect that your symptoms are beyond the ability of the emergency department to truly diagnosed. I want you to call her family doctor and set up a follow-up appointment. Certainly if you develop new concerning symptoms she should return to the ER. Take the prescribed Motrin as well as the prescribed Bentyl to help with severe pain. Prescriptions: Dicyclomine HCl [Bentyl] 10 mg PO Q6H PRN #16 capsule PRN Reason: Pain Ibuprofen [Motrin] 600 mg PO Q6H PRN #30 tab PRN Reason: Pain
[2017-05-08 21:13] VITALS: BP 147/90
== END 2017-05-08 21:10 | disposition home or self-care (01) ==
LOC: ER 19:12
DX: R10.9 Unspecified abdominal pain (principal)